=== PATIENT | female | born 1990 | race Caucasian/White ===

== ENCOUNTER 2022-07-09 18:37 | Inpatient (IN) | payer BC ==
[~2022-07-09] VITALS: Ht 149.9 cm; Wt 98.6 kg
--- OUTSIDE RECORDS SUMMARY | 2022-07-09 20:26 | XMS REPORT ---
Author [facility] Address Unknown Phone Unavailable Care Team Providers Care Hotel Clerk Name Role Phone KERRYKIRILL Landaverde Unavailable PROBLEMS Type Condition ICD9-CM Code [id number] Code Onset Dates Condition S tatus W/U Status Risk SNOMED Code Notes Problem Infertility, female N97.9 confirmed 1864517 Problem Other chronic pain G89.29 confirmed 8 2097607 Problem Moderate episode of recurrent major depressive disorder F33.1 confirmed 847044331 Problem PCO (polycystic ovaries) E28.2 confirmed [id number] ALLERGIES Allergen (clinical drug ingredient) Drug/Non Drug Allergy do cumented on EMR Reaction Allergy Type Onset Date Status diphenhydramine Benadryl anaphylaxis Drug Allergy Active ENCOUNTERS from 1989 to 2022-06-10 Encounter Location Date Provider [facility] [address] [id number] [place] [address] Jun, KIRILL PAYNE IMMUNIZATIONS Vaccine Route Administration Date Status PRIVATE TDAP (BOOSTRIX) IM Intramuscular Apr 30, 2022 Adminis tered dt (history) Unknown Dec 25, 2000 Administered engerix hepatitis b pediatric/adolescent (history) Unknown Dec 25, 2000 Administered 1st Dose PFIZER, COVID-19, 0.3mL Unknown Jul 09, 2020 Administered SOCIAL HISTORY Sex Assigned At : Social History Observation Description Sex Assigned At Unknown Alcohol Screen (Audit-C) Question Answer Notes Did you have a drink containing alcohol in the past year? No Points 0 Interpretation Negative DAST-10 (2020 Edition) Question Answer Notes 1. Have you used drugs other than those required for medical reasons? No 2. Do you abuse more than one drug at a time? No 3. Are you always able to stop using drugs when you want to? Yes 4. Have you had "blackouts" or "flashbacks" as a result of d rug use? No 5. Do you ever feel bad or guilty about your drug use? No 6. Does your spouse (or parents) ever co mplain about your involvement with drugs? No 7. Have you neglected your family because of your use of mary ann gs? No 8. Have you engaged in illegal activities in order to obtain drugs? No 9. Have you ever experienced withdrawal symptoms (felt sick) when you stopped taking drugs? No 10. Have you had medical problems as a r esult of your drug use (e.g., memory loss, hepatitis, convulsions, bleeding etc.)? No Results: 0 Interpretation of Score: No problems reported Sexual History Question Answer Notes Had sex in the past 12 months (vaginal, oral, or anal)? Yes Last menstrual period 09/14/2021 Have you ever had a Sexually transmitted disease? No with Men only Use protection? No PHQ2 Question Answer Notes In the last 2 weeks, how often have you had little interest or pleasure in doing things? Not at all In the last 2 weeks, how often have you been feeling down, depressed, or hopeless? Not at all Total PHQ2 Score 0 Tobacco use other than smoking: Question Answer Notes Are you an other tobacco user? No REASON FOR REFERRAL No Information VITAL SIGNS No information MEDICATIONS Medication SIG (Take, Route, Frequency, Duration) Notes Start Da te End Date Status Ondansetron 4 MG 1 tablet on the tongue and a llow to dissolve Orally every 8 hours for 30 day(s) Dec, Active Prometrium 200 MG 1 capsule Orally daily for 30 days 2021 Active Flintstones Multivitamin - 1 tablet Orally Once a day Active PROCEDURES No Information RESULTS No Results REASON FOR VISIT Requests return call MEDICAL (GENERAL) HISTORY Type Description Date Medical History slipped disk Surgical History leg surgery Goals Section No Information Health Concerns No Information MEDICAL EQUIPMENT No Information MENTAL STATUS No Information FUNCTIONAL STATUS No Information ASSESSMENTS No Information PLAN OF TREATMENT Next Appt Details Provider Name:TANA HINTON, 2022-06-12 09 :00:00 AM, [address] [place] [address], [id number], [place], [address], Provider Name:TANA HINTON, 2022-06-18 04 :20:00 PM, [address] [place] [address], [id number], [place], [address], Provider Name:TANA HINTON, 2022-06-25 04 :20:00 PM, [address] [place] [address], [id number], [place], [address], Provider Name:TANA HINTON, 2022-07-07 04 :20:00 PM, [address] [place] [address], [id number], [place], [address], Insurance Providers Payer Name Payer Address Payer Phone Insured Name Patient Relati onship to Insured Coverage Start Date Coverage End Date [facility] Number [facility] Missing insurance scan copy of card into pt doc Della Ponce Self - patient is the insured [id number] [facility] [address] [facility] [id number] Della Ponce Self - patient is the insured [id number] MEDICATIONS ADMINISTERED Medication Instructions Date of Administration Dosage DEPO MEDROL 80 MG/ML Jun, 1 mL DEXAMETHASONE 4MG/ML (PER 1 ML) Jun, 1 mL
--- OUTSIDE RECORDS SUMMARY | 2022-07-09 20:26 | XMS REPORT ---
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 confirmed 045190015045 Problem care in third trimester Z34.93 conf irmed 850928052 Problem Moderate episode of recurrent major depressive disorder F33.1 confirmed 790446473 Problem PCO (polycystic ovaries) E28.2 confirmed 287593842 Problem Infertility, female N97.9 confirmed 8541035 ALLERGIES Allergen (clinical drug ingredient) Drug/Non Drug Allergy do cumented on EMR Reaction Allergy Type Onset Date Status diphenhydramine Benadryl anaphylaxis Drug Allergy Active ENCOUNTERS from 1989 to 2022-06-29 Encounter Location Date Provider Diagnosis [address] [id number] [place] [address] Jul, TANA HINTON PCO (polycystic ovar ies) E28.2 IMMUNIZATIONS Vaccine Route Administration Date Status PRIVATE [...] Notes Start Da te End Date Status Famotidine 20 MG 1 tablet as needed Orally Twice a day for 30 da ys May, Active Flintstones Multivitamin - 1 tablet Orally Once a day Active Ondansetron 4 MG 1 tablet on the tongue and a llow to dissolve Orally every 8 hours for 30 day(s) Dec, Active PROCEDURES from 1989 to 2022-06-29 Procedure Date Ordered Date Performed Result Body Site ROUTINE VENIPUNCTURE 2020-07-27 N/A RESULTS No Results REASON FOR VISIT No Information MEDICAL (GENERAL) HISTORY Type Description Date Medical History slipped disk Surgical History leg surgery Goals Section No Information Health Concerns No Information MEDICAL EQUIPMENT No Information MENTAL STATUS No Information FUNCTIONAL STATUS No Information ASSESSMENTS Encounter Date Diagnosis Assessment Notes Treatment Notes Treatm ent Clinical Notes Jul, PCO (polycystic ovaries) (ICD-10 - E28.2 ) PLAN OF TREATMENT Next Appt Details Provider Name:TANA HINTON, 2022-07-07 04 :20:00 PM, [address] [place] [address], [id number], [place], [address], Insurance Providers Payer Name Payer Address Payer Phone Insured Name Patient Relati onship to Insured Coverage Start Date Coverage End Date Subscriber Number Group Nu mber [employer] [place] [address] [facility] [address] Della Ponce Self - patient is the insured [id number] [facility] Missing insurance scan copy of card into pt doc Della Ponce Self - patient is the insured [id number] MEDICATIONS ADMINISTERED Medication Instructions Date of Administration Dosage DEXAMETHASONE 4MG/ML (PER 1 ML) Jun, 1 mL DEPO MEDROL 80 MG/ML Jun, 1 mL
--- OUTSIDE RECORDS SUMMARY | 2022-07-09 20:26 | XMS REPORT ---
Author Author [facility] Address Unknown Phone Unavailable Care Team Providers Care Client Success Specialist Name Role Phone KIRILL PAYNE Unavailable PROBLEMS Type Condition ICD9-CM Code [id number] Code Onset Dates Condition S tatus W/U Status Risk SNOMED Code Notes Problem Infertility, female N97.9 confirmed 2945851 Problem Other chronic pain G89.29 confirmed 8 1353601 Problem Moderate episode of recurrent major depressive disorder F33.1 confirmed 473824074 Problem PCO (polycystic ovaries) E28.2 confirmed 424067527 ALLERGIES Allergen (clinical drug ingredient) Drug/Non Drug Allergy do cumented on EMR Reaction Allergy Type Onset Date Status diphenhydramine Benadryl anaphylaxis Drug Allergy Active ENCOUNTERS from 1989 to 2022-06-09 Encounter [facility] Date [facility] [address] [id number] [place] [address] Jun, 2020 KIRILL KERRY Sore throat J02.9 IMMUNIZATIONS Vaccine Route Administration Date Status 1st Dose PFIZER, COVID-19, 0.3mL Unknown Jul 09, 2020 Administered engerix hepatitis b pediatric/adolescent (history) Unknown Dec 25, 2000 Administered dt (history) Unknown Dec 25, 2000 Administered PRIVATE TDAP (BOOSTRIX) IM Intramuscular Apr 30, 2022 Adminis tered SOCIAL HISTORY Sex Assigned At : Social [...] 8 hours for 30 day(s) Dec, Active Flintstones Multivitamin - 1 tablet Orally Once a day Active Prometrium 200 MG 1 capsule Orally daily for 30 days 2021 Active PROCEDURES No Information RESULTS No Results REASON FOR VISIT strep swab Unruly Melara RN MEDICAL (GENERAL) HISTORY Type Description Date Medical History slipped disk Surgical History leg surgery Goals Section No Information Health Concerns No Information MEDICAL EQUIPMENT No Information MENTAL STATUS No Information FUNCTIONAL STATUS No Information ASSESSMENTS Encounter Date Diagnosis Assessment Notes Treatment Notes Treatm ent Clinical Notes Jun, Sore throat (ICD-10 - J02.9) PLAN OF TREATMENT Next Appt Details Provider Name:TANA HINTON, 2022-06-09 04 :20:00 PM, [address] [place] [address], [id number], [place], [address], Insurance Providers Payer Name Payer Address Payer Phone Insured Name Patient Relati onship to Insured Coverage Start Date Coverage End Date Subscriber Number Group [facility] Missing insurance scan copy of card into pt doc Della Ponce Self - patient is the insured [id number] [facility] [address] [facility] [address] Della Ponce Self - patient is the insured [id number] MEDICATIONS ADMINISTERED Medication Instructions Date of Administration Dosage DEXAMETHASONE 4MG/ML (PER 1 ML) Jun, 1 mL DEPO MEDROL 80 MG/ML Jun, 1 mL
--- OUTSIDE RECORDS SUMMARY | 2022-07-09 20:26 | XMS REPORT ---
Author Author [facility] Address Unknown Phone Unavailable Care Team Providers Care Cementer Machine Applicator Name Role Phone MARY JANE TANA Unavailable PROBLEMS Type Condition ICD9-CM Code [id number] Code Onset Dates Condition S tatus W/U Status Risk SNOMED Code Notes Problem Infertility, female N97.9 confirmed 0676007 Problem Other chronic pain G89.29 confirmed 8 4867302 Problem Moderate episode of recurrent major depressive disorder F33.1 confirmed 118929149 Problem PCO (polycystic ovaries) E28.2 confirmed 983584538 ALLERGIES Allergen (clinical drug ingredient) Drug/Non Drug Allergy do cumented on EMR Reaction Allergy Type Onset Date Status diphenhydramine Benadryl anaphylaxis Drug Allergy Active ENCOUNTERS from 1989 to 2022-07-09 Encounter Location Date Provider [facility] [address] [id number] [address] Jul, TANA HINTON IMMUNIZATIONS Vaccine Route Administration Date Status dt (history) Unknown Dec 25, 2000 Administered engerix hepatitis b pediatric/adolescent (history) Unknown Dec 25, 2000 Administered 1st Dose PFIZER, COVID-19, 0.3mL Unknown Jul 09, 2020 Administered PRIVATE TDAP (BOOSTRIX) IM Intramuscular Apr [...] Notes Start Da te End Date Status Flintstones Multivitamin - 1 tablet Orally Once a day Active Ondansetron 4 MG 1 tablet on the tongue and a llow to dissolve Orally every 8 hours for 30 day(s) Dec, Active PROCEDURES No Information RESULTS No Results REASON FOR VISIT No Information MEDICAL (GENERAL) HISTORY Type Description Date Medical History slipped disk Surgical History leg surgery Goals Section No Information Health Concerns No Information MEDICAL EQUIPMENT No Information MENTAL STATUS No Information FUNCTIONAL STATUS No Information ASSESSMENTS No Information PLAN OF TREATMENT No Information Insurance Providers Payer Name Payer Address Payer Phone Insured Name Patient Relati onship to Insured Coverage Start Date Coverage End Date Subscriber Number Group Nu mber [facility] Missing insurance scan copy of card into pt doc Della Ponce Self - patient is the insured [id number] [employer] [place] [address] [facility] [address] Della Ponce Self - patient is the insured [id number] MEDICATIONS ADMINISTERED Medication Instructions Date of Administration Dosage DEPO MEDROL 80 MG/ML Jun, 1 mL DEXAMETHASONE 4MG/ML (PER 1 ML) Jun, 1 mL
--- OUTSIDE RECORDS SUMMARY | 2022-07-09 20:26 | XMS REPORT ---
Author Author [facility] Address Unknown Phone Unavailable Care Team Providers Care Skiver Hand Name Role Phone MARY JANE TANA Unavailable PROBLEMS Type Condition ICD9-CM Code [id number] Code Onset Dates Condition S tatus W/U Status Risk SNOMED Code Notes Problem Infertility, female N97.9 confirmed 6991341 Problem Other chronic pain G89.29 confirmed 8 9371018 Problem Moderate episode of recurrent major depressive disorder F33.1 confirmed 370384429 Problem PCO (polycystic ovaries) E28.2 confirmed 124176685 ALLERGIES Allergen (clinical drug ingredient) Drug/Non Drug Allergy do cumented on EMR Reaction Allergy Type Onset Date Status diphenhydramine Benadryl anaphylaxis Drug Allergy Active ENCOUNTERS from 1989 to 2022-07-09 Encounter Location Date Provider [facility] [address] [id number] [address] Jul, TANA HINTON IMMUNIZATIONS Vaccine Route Administration Date Status 1st [...] Information RESULTS No Results REASON FOR VISIT Lab results MEDICAL (GENERAL) HISTORY Type Description Date Medical [...] End Date Subscriber Number Group Nu mber [facility] Missing insurance scan copy of card into pt doc Della Ponce Self - patient is the insured [id number] [facility] [address] [facility] [address] Della Ponce Self - patient is the insured [id number] MEDICATIONS ADMINISTERED Medication Instructions Date of Administration Dosage DEXAMETHASONE 4MG/ML (PER 1 ML) Jun, 1 mL DEPO MEDROL 80 MG/ML Jun, 1 mL
[2022-07-09] MEDS ORDERED: NS IV 1000 ML 1,000 ML IV ONE (20:30)
[2022-07-09] MEDS ORDERED: MINERAL OIL 30 ML UDC TOP PRN (20:30)
[2022-07-09] MEDS ORDERED: TERBUTALINE INJ 1 MG/ML (BRETHINE) AMP SC PRN (20:30)
[2022-07-09 20:47] LABS: BILIRUBIN,URINE NEGATIVE (NEGATIVE); CLARITY,URINE CLOUDY; COLOR,URINE ORANGE; GLUCOSE, URINE (UA) NEGATIVE (NEGATIVE); KETONES,URINE NEGATIVE (NEGATIVE); LEUKOCYTE ESTERASE ,URINE NEGATIVE (NEGATIVE); NITRITE,URINE NEGATIVE (NEGATIVE); PROTEIN,URINE 1+ (NEGATIVE)
[2022-07-09 20:47] LABS: BASOPHILS % (AUTO) 0 % (0-10); EOSINOPHILS # (AUTO) 0.1 10^3/uL (0.0-0.3); EOSINOPHILS % (AUTO) 1 % (0-10); HEMATOCRIT 33 % (35-52); HEMOGLOBIN 10.5 g/dL (11.5-16.0); LYMPHOCYTES # (AUTO) 2.2 10^3/uL (1.0-4.0); LYMPHOCYTES % (AUTO) 23 % (12-44); MEAN CORPUSCULAR HEMOGLOBIN 27 pg (25-34); MEAN CORPUSCULAR HGB CONC 32 g/dL (32-36); MEAN CORPUSCULAR VOLUME 86 fL (80-99); MEAN PLATELET VOLUME 11.5 fL (9.0-12.2); MONOCYTES # (AUTO) 0.6 10^3/uL (0.0-1.0); MONOCYTES % (AUTO) 7 % (0-12); NEUTROPHILS # (AUTO) 6.6 10^3/uL (1.8-7.8); NEUTROPHILS % (AUTO) 69 % (42-75); PLATELET COUNT 310 10^3/uL (130-400); WHITE BLOOD COUNT 9.6 10^3/uL (4.3-11.0)
[2022-07-09] MEDS ORDERED: D5 LR IV SOLUTION 1,000 ML IV ONE (20:51)
[2022-07-09] MEDS: D5 LR IV SOLUTION 1,000 ML IV SCH (20:54)
[2022-07-09 21:10] VITALS: BP 114/69
[2022-07-09 21:14] LABS: BACTERIA,URINE FEW /HPF; CALCIUM OXALATE CRYSTALS,UR LARGE /LPF; HYALINE CASTS, URINE RARE /LPF; WBC,URINE 0-2 /HPF
[2022-07-09] MEDS: CATHETER FLUSH 10 ML SYR IV SCH (21:48)
[2022-07-10] VITALS (76 sets, daily range): BP systolic 93–135; BP diastolic 52–87
[2022-07-10] MEDS: D5 LR IV SOLUTION 1,000 ML IV SCH ×3 (05:07→19:59)
[2022-07-10] MEDS: CATHETER FLUSH 10 ML SYR IV SCH ×2 (05:21→22:00)
--- NOTE | 2022-07-10 08:02 | History & Physical-OB ---
OB - Chief Complaint & HPI Date/Time Date of Admission: Date of Admission: Jul 09, 2022 at 18:37 Date seen by a Provider: Jul 10, 2022 Time Seen by a Provider: 08:10 Chief Complaint/History OB-Reason for Admission/Chief: Induction of Labor Hx : 1 Hx Para: 0 Expected Date of Delivery: Jul 08, 2022 Gestational Age in Weeks: 40 Gestational Age in Days: 2 Indication for induction: post dates Admission Nurse Assessment Rev: Yes Allergies and Home Medications Allergies Coded Allergies: diphenhydramine (Verified Allergy, Severe, Anaphylaxis, 07/09/22) Patient Home Medication List Home Medication List Reviewed: Yes OB - History Hx of Present Care: Yes Ultrasounds: Normal mid trimester US Obstetrical Complications: None Medical Complications: None Information Induced Hypertension: No Maternal Gestational Diabetes: No Patient Past Medical History PMH includes anxiety and depression Immunizations Influenza Vaccine Up-to-Date: No; Not Current COVID19 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: [employer] Hepatitis A: Yes Hepatitis B: Yes Tetanus Booster (TDap): Less than 5yrs Rubella: immune RPR/VDRL: Negative GBS Status: Negative HBsAG: Negative OB - Admission Exam Physical Exam Vitals: Vital Signs 07/10/22 03:26 Temp 36.8 Pulse 82 Resp 18 B/P (MAP) 130/76 (94) Pulse Ox 100 O2 Delivery Room Air HEENT: Moist Membranes Heart: Rhythm Normal Lungs: Clear Abdomen: Non tender Extremities: Edema (1+ pitting edema) Cervical Dilatation: 1cm Effacement: 50% Station: -1 Membranes: Intact Heart Rate: 130's Accelerations: Accelerations Present Decelerations: No Decelerations Short Term Variability: Present Trash Hauler Variability: Average (6-25) Contractions on Admission: None Olivas Scoring Tool (Modified) Dilation (cm): 1-2cm (1) Effacement (%): 31-51% (1) Descent/Station: -1,0 (2) Cervix Consistency: Soft (2) Cervix Position: Anterior (2) Subtract 1 point for: Postdate (-1) Olivas Score: 8 Labs Laboratory Tests Test 07/09/22 19:00 07/09/22 19:45 Range/Units Urine Color ORANGE Urine Clarity CLOUDY Urine pH 6.0 5-9 Urine Specific [place] >=1.030 1.016-1.022 Urine Protein 1+ H NEGATIVE Urine Glucose (UA) NEGATIVE NEGATIVE Urine Ketones NEGATIVE NEGATIVE Urine Nitrite NEGATIVE NEGATIVE Urine Bilirubin NEGATIVE NEGATIVE Urine Urobilinogen 1.0 < = 1.0 MG/DL Urine Leukocyte Esterase NEGATIVE NEGATIVE Urine RBC (Auto) NEGATIVE NEGATIVE Urine RBC NONE /HPF Urine WBC 0-2 /HPF Urine Squamous Epithelial Cells 2-5 /HPF Urine Crystals PRESENT H /LPF Urine Calcium Oxalate Crystals LARGE H /LPF Urine Bacteria FEW H /HPF Urine Casts PRESENT /LPF Urine Hyaline Casts RARE /LPF Urine Mucus LARGE H /LPF Urine Culture Indicated YES White Blood Count 9.6 4.3-11.0 10^3/uL Red Blood Count 3.86 3.80-5.11 10^6/uL Hemoglobin 10.5 L 11.5-16.0 g/dL Hematocrit 33 L 35-52 % Mean Corpuscular Volume 86 80-99 fL Mean Corpuscular Hemoglobin 27 25-34 pg Mean Corpuscular Hemoglobin Concent 32 32-36 g/dL Red Cell Distribution Width 14.3 10.0-14.5 % Platelet Count 310 130-400 10^3/uL Mean Platelet Volume 11.5 9.0-12.2 fL Immature Granulocyte % (Auto) 1 % Neutrophils (%) (Auto) 69 42-75 % Lymphocytes (%) (Auto) 23 12-44 % Monocytes (%) (Auto) 7 0-12 % Eosinophils (%) (Auto) 1 0-10 % Basophils (%) (Auto) 0 0-10 % Neutrophils # (Auto) 6.6 1.8-7.8 10^3/uL Lymphocytes # (Auto) 2.2 1.0-4.0 10^3/uL Monocytes # (Auto) 0.6 0.0-1.0 10^3/uL Eosinophils # (Auto) 0.1 0.0-0.3 10^3/uL Basophils # (Auto) 0.0 0.0-0.1 10^3/uL Immature Granulocyte # (Auto) 0.1 0.0-0.1 10^3/uL OB - Assessment/Plan/Diagnosis Assessment Assessment: induction of labor Admission Dx 32yo F @ 41w2d here for induction of labor due to being post dates. Patient has not had any complications throughout her . PMH includes depression and anxiety. Patient reports she is not feeling any contractions at this time. She has felt more pressure in her lower stomach over the past week but denies any contractions, vaginal bleeding, and LOF. At her previous office visit last week she was dilated to 1cm with 50% effacement and -1 station. She has been feeling well otherwise and denies fevers, chills, chest pain, shortness of breath, nausea, vomiting, and diarrhea. Admission Status: Observation Plan Plan: Induction Induction Method: per Misoprostol Protocol Other Plan Patient has received 150mcg of misoprostol for cervical ripening. Will start IV pitocin to help with contractions. Once patient is experiencing more regular contractions then an amniotomy will be performed. Expectant management will be done after that. Cervical checks will be performed to monitor labor course. heart monitoring is being done as well. EUGENE GUTIERREZ Jul 10, 2022 08:02
[2022-07-10] MEDS ORDERED: OXYTOCIN PRE-MIX DRIP 500 ML IV SCH (08:30)
[2022-07-10] MEDS ORDERED: LIDOCAINE 1% INJ 20 ML VIAL IJ PRN (14:00)
[2022-07-10] MEDS ORDERED: ONDANSETRON 4 MG/2 ML (SDV) Z0FRAN IVP PRN ×3 (14:45→22:45)
[2022-07-10] MEDS ORDERED: ONDANSETRON 4 MG/2 ML (SDV) Z0FRAN ONE ×2 (14:49→21:18)
[2022-07-10] MEDS ORDERED: BUTORPHANOL INJ 2 MG/ML (STADOL) VIAL IV ONE (16:00)
[2022-07-10] MEDS: LACTATED RINGERS 1,000 ML IV SCH ×2 (16:28→21:14)
[2022-07-10] MEDS ORDERED: fentaNYL 2 mcg/ml BUPIVA 0.125 100 ML ONE (16:36)
[2022-07-10] MEDS ORDERED: fentaNYL INJ 100 MCG/2 ML AMP ONE (16:42)
[2022-07-10] MEDS ORDERED: BUPIVACAINE 0.25% 10 ML (SENSORCAINE) VIAL ONE ×2 (16:42→21:18)
[2022-07-10] MEDS ORDERED: ONDANSETRON 4 MG/2 ML (SDV) Z0FRAN IV PRN (17:15)
[2022-07-10] MEDS ORDERED: diphenhydrAMINE 50 MG/ML INJ (BENADRYL) IV PRN (17:15)
[2022-07-10] MEDS ORDERED: NALOXONE 0.4 MG/ML 1 ML (NARCAN) VIAL IV PRN ×2 (17:15→21:45)
[2022-07-10] MEDS ORDERED: LACTATED RINGERS 1,000 ML IV ONE (17:15)
[2022-07-10] MEDS ORDERED: fentaNYL 2 mcg/ml BUPIVA 0.125 100 ML IV SCH (17:15)
[2022-07-10] MEDS ORDERED: CATHETER FLUSH 10 ML SYR IV PRN ×2 (17:15→21:00)
--- NOTE | 2022-07-10 18:21 | Labor Progress Note ---
Labor Progress Note Labor Progress Note Date Seen by Provider: Jul 10, 2022 Time Seen by Provider: 18:20 Subjective: Pt denies complaints. Feeling much better since getting epidural Objective: 2.5/60/-1 Assessment/Plan: Della Ponce is a (32 /Para 1 / 0,Gestational Age (wks)40 here for IOL CEFM/TOCO Continue pitocin protocol Anesthesia: Epidural AROM clear 0615 Anticipate vaginal delivery. Vitals - Labs Vital Signs - I&O Vital Signs Date Time Temp Pulse Resp B/P (MAP) Pulse Ox O2 Delivery O2 Flow Rate FiO2 07/10/22 12:30 73 18 124/69 (87) Room Air 07/10/22 12:15 81 18 120/81 (94) Room Air 07/10/22 12:00 37.0 69 18 112/76 (88) Room Air 07/10/22 11:45 75 18 118/74 (89) Room Air 07/10/22 11:30 75 18 103/59 (74) Room Air 07/10/22 11:15 75 18 115/67 (83) Room Air 07/10/22 11:00 82 18 120/74 (89) Room Air 07/10/22 10:45 36.6 75 18 107/59 (75) Room Air 07/10/22 10:30 75 18 129/79 (96) Room Air 07/10/22 10:15 80 18 127/76 (93) Room Air 07/10/22 10:00 36.5 79 18 123/72 (89) Room Air 07/10/22 09:45 74 18 102/77 (85) Room Air 07/10/22 09:30 74 18 113/78 (90) Room Air 07/10/22 09:15 75 18 117/73 (88) Room Air 07/10/22 09:00 36.3 70 18 116/59 (78) Room Air 07/10/22 08:45 78 18 108/60 (76) Room Air 07/10/22 08:30 74 18 123/75 (91) Room Air 07/10/22 07:30 36.4 75 18 111/69 (83) 98 Room Air 07/10/22 03:26 36.8 82 18 130/76 (94) 100 Room Air 07/10/22 00:23 73 109/66 (80) 2/23/23 00:13 36.9 77 20 103/61 (75) 97 Room Air 07/09/22 21:10 36.5 91 20 97 Room Air I & O 07/10/22 07:00 Intake Total 2000 ml Balance 2000 ml Labs Laboratory Tests 07/09/22 19:00: Urine Color ORANGE, Urine Clarity CLOUDY, Urine pH 6.0, Urine Specific [place] >=1.030, Urine Protein 1+H, Urine Glucose (UA) NEGATIVE, Urine Ketones NEGATIVE, Urine Nitrite NEGATIVE, Urine Bilirubin NEGATIVE, Urine Urobilinogen 1.0, Urine Leukocyte Esterase NEGATIVE, Urine RBC (Auto) NEGATIVE, Urine RBC NONE, Urine WBC 0-2, Urine Squamous Epithelial Cells 2-5, Urine Crystals PRESENTH, Urine Calcium Oxalate Crystals LARGEH, Urine Bacteria FEWH, Urine Casts PRESENT, Urine Hyaline Casts RARE, Urine Mucus LARGEH, Urine Culture Indicated YES 07/09/22 19:45: White Blood Count 9.6, Red Blood Count 3.86, Hemoglobin 10.5L, Hematocrit 33L, Mean Corpuscular Volume 86, Mean Corpuscular Hemoglobin 27, Mean Corpuscular Hemoglobin Concent 32, Red Cell Distribution Width 14.3, Platelet Count 310, Mean Platelet Volume 11.5, Immature Granulocyte % (Auto) 1, Neutrophils (%) (Auto) 69, Lymphocytes (%) (Auto) 23, Monocytes (%) (Auto) 7, Eosinophils (%) (Auto) 1, Basophils (%) (Auto) 0, Neutrophils # (Auto) 6.6, Lymphocytes # (Auto) 2.2, Monocytes # (Auto) 0.6, Eosinophils # (Auto) 0.1, Basophils # (Auto) 0.0, Immature Granulocyte # (Auto) 0.1 Microbiology 07/09/22 Urine Culture - Preliminary, Resulted Culture In Progress TANA HINTON MD Jul 10, 2022 18:21
[2022-07-10] MEDS ORDERED: CITRIC ACID/SOB CIT (BICITRA) 30 ML UDC PO ONE (21:00)
[2022-07-10] MEDS ORDERED: METOCLOPRAMIDE INJ 10 MG/2 ML (REGLAN) ONE (21:00)
[2022-07-10] MEDS ORDERED: METOCLOPRAMIDE INJ 10 MG/2 ML (REGLAN) IV ONE (21:00)
[2022-07-10] MEDS ORDERED: CITRIC ACID/SOB CIT (BICITRA) 30 ML UDC ONE (21:00)
[2022-07-10] MEDS ORDERED: LACTATED RINGERS 1,000 ML IV PRN ×2 (21:00)
[2022-07-10] MEDS ORDERED: FAMOTIDINE 20MG/2ML IV (PEPCID) IV ONE (21:00)
[2022-07-10] MEDS ORDERED: FAMOTIDINE 20MG/2ML IV (PEPCID) ONE (21:01)
[2022-07-10] MEDS ORDERED: LIDOCAINE PF 2% 5 ML (XYLOCAINE) VIAL ONE (21:17)
[2022-07-10] MEDS ORDERED: BUPIVACAINE 0.5% 30 ML (SENSORCAINE) VIAL ONE (21:18)
[2022-07-10] MEDS ORDERED: KETOROLAC 30 MG/ML VIAL ONE (21:18)
[2022-07-10] MEDS ORDERED: ceFAZolin INJECTION 3,000 MG in NS (IVPB) 100 ML IV ONE (21:30)
[2022-07-10] MEDS ORDERED: ceFAZolin INJECTION 2,000 MG ONE (21:37)
[2022-07-10] MEDS ORDERED: NS (IVPB) 50 ML ONE (21:38)
[2022-07-10] MEDS ORDERED: BISACODYL 10 MG SUPP (DULCOLAX) PR PRN (21:45)
[2022-07-10] MEDS ORDERED: MEASLES,MUMPS,RUBELLA 1 EA INJ SC SCH (21:45)
[2022-07-10] MEDS ORDERED: ceFAZolin INJECTION 2,000 MG in NS (IVPB) 50 ML IV ONE (21:45)
[2022-07-10] MEDS ORDERED: TETANUS,DIPTH,PERTUSS P/F (BOOSTRIX) 0.5 ML VIAL IM SCH (21:45)
--- NOTE | 2022-07-10 21:48 | Progress Note ---
Standard Progress Note Progress Notes/Assess & Plan Date Seen by a Provider: Jul 10, 2022 Time Seen by a Provider: 21:47 Progress/Assessment & Plan Please see Dr. Burleson labor summary. I was consulted to proceed with PLTCS due to arrest of dilatation and heart rate deceleration with intolerance of labor. Patient max dilatation was 2 cm. Discussed with patient and family procedure in detail, all questions answered and patient taken to OR. MYRON OTOOLE DO Jul 10, 2022 21:48
[2022-07-10] MEDS ORDERED: OXYTOCIN PRE-MIX DRIP 1,000 ML IV ONE (21:53)
[2022-07-10] MEDS ORDERED: CATHETER FLUSH 10 ML SYR IV SCH (22:00)
[2022-07-10] MEDS ORDERED: METHYLERGONOVINE 0.2 MG/ML (METHERGINE) AMP ONE (22:04)
--- NOTE | 2022-07-10 22:04 | Labor Progress Note ---
Labor Progress Note Labor Progress Note Date Seen by Provider: Jul 10, 2022 Time Seen by Provider: 09:05 Subjective: Pt denies complaints. Comfortable with epidural Called by Nursing staff regarding decelerations that are concerning with lates. Reviewed strip remotely. Objective: 2-/-1 Assessment/Plan: Della Ponce is a (32 /Para 1 / 0,Gestational Age (wks)40.2 here for IOL. CEFM/TOCO Pitocin protocol stopped due to decelerations Called Dr Avendano for need for C/section Vitals - Labs Vital Signs - I&O Vital Signs Date Time Temp Pulse Resp B/P (MAP) Pulse Ox O2 Delivery O2 Flow Rate FiO2 07/10/22 20:15 36.4 07/10/22 16:00 36.9 75 18 126/71 (89) 99 Room Air 07/10/22 15:45 75 18 122/77 (92) 99 Room Air 07/10/22 15:38 92 18 114/73 (87) Room Air 07/10/22 15:30 81 18 99 Room Air 07/10/22 15:15 71 18 134/75 (94) 98 Room Air 07/10/22 15:00 86 18 116/73 (87) 100 Room Air 07/10/22 14:45 115 18 131/75 (93) Room Air 07/10/22 14:30 85 18 112/75 (87) Room Air 07/10/22 14:15 65 18 129/69 (89) Room Air 07/10/22 14:00 37.0 62 18 130/72 (91) Room Air 07/10/22 13:45 71 18 103/59 (74) 100 Room Air 07/10/22 13:30 65 18 103/59 (74) 100 Room Air 07/10/22 13:15 68 18 110/59 (76) 100 Room Air 07/10/22 13:00 37.2 77 18 109/55 (73) 100 Room Air 07/10/22 12:45 80 18 114/60 (78) Room Air 07/10/22 12:30 73 18 124/69 (87) Room Air 07/10/22 12:15 81 18 120/81 (94) Room Air 07/10/22 12:00 37.0 69 18 112/76 (88) Room Air 07/10/22 11:45 75 18 118/74 (89) Room Air 07/10/22 11:30 75 18 103/59 (74) Room Air 07/10/22 11:15 75 18 115/67 (83) Room Air 07/10/22 11:00 82 18 120/74 (89) Room Air 07/10/22 10:45 36.6 75 18 107/59 (75) Room Air 07/10/22 10:30 75 18 129/79 (96) Room Air 07/10/22 10:15 80 18 127/76 (93) Room Air 07/10/22 10:00 36.5 79 18 123/72 (89) Room Air 07/10/22 09:45 74 18 102/77 (85) Room Air 07/10/22 09:30 74 18 113/78 (90) Room Air 07/10/22 09:15 75 18 117/73 (88) Room Air 07/10/22 09:00 36.3 70 18 116/59 (78) Room Air 07/10/22 08:45 78 18 108/60 (76) Room Air 07/10/22 08:30 74 18 123/75 (91) Room Air 07/10/22 07:30 36.4 75 18 111/69 (83) 98 Room Air 07/10/22 03:26 36.8 82 18 130/76 (94) 100 Room Air 07/10/22 00:23 73 109/66 (80) 07/10/22 00:13 36.9 77 20 103/61 (75) 97 Room Air I & O 07/10/22 07:00 Intake Total 2000 ml Balance 2000 ml Labs Microbiology 07/09/22 Urine Culture - Preliminary, Resulted Culture In Progress TANA HINTON MD Jul 10, 2022 22:04
[2022-07-10] MEDS: KETOROLAC 30 MG/ML VIAL IV SCH (22:20)
[2022-07-10] MEDS ORDERED: morphine INJ 10 MG/ML 1ML (SYR OR VIAL) IVP ONE (22:45)
--- NOTE | 2022-07-10 23:22 | OPERATIVE REPORT ---
PREOPERATIVE DIAGNOSES: 1. A 32-year-old female with intolerance of labor at 40 weeks and 2 days gestation. 2. Arrest of cervical dilatation. POSTOPERATIVE DIAGNOSES: 1. A 32-year-old female with intolerance of labor at 40 weeks and 2 days gestation. 2. Arrest of cervical dilatation. PROCEDURE: Primary low transverse section. SURGEON: Jose Ramon Otoole DO ANESTHESIA: Epidural, which was bolused. EBL: 400 mL. URINE OUTPUT: 200 mL clear at the end of the procedure. FLUIDS: 1700 mL lactated Ringer's solution. FINDINGS: Live male infant, weight 7 pounds 7 ounces, Apgars of 8 and 9. Grossly normal appearing uterus, bilateral fallopian tubes and ovaries. SPECIMEN SENT: None. INDICATIONS FOR PROCEDURE: This 32-year-old female. The patient was brought in for induction of labor by Dr. Anna Lynn at the [facility]. Her labor course is documented as such from Dr. Lynn. I was consulted this evening due to intolerance of Pitocin augmentation of labor. The patient had been at 2 cm for most of the day today without any further dilatation. Due to this and due to failure of her cervix to progress. I discussed with the patient proceeding with primary . Risks of the procedure were discussed with the patient at bedside in detail with the family present including risk of bleeding, infection, damage to surrounding structures including but not limited to bowel, bladder, ureter, kidneys, possible need for reoperation, postoperative complications that may occur recovery timeframe risk from anesthesia and even . After everything was discussed with the patient in detail, consent was obtained, the patient was taken to the operating room. OPERATIVE REPORT IN DETAIL: Once in the operating room, epidural analgesia was bolused and found to be adequate, was placed in supine position with leftward tilt, prepped and draped in normal sterile fashion. A timeout was performed. Anesthesia was tested. I then make a Pfannenstiel skin incision with a knife and carried down to the fascia using Bovie cautery, the fascial incision extended laterally using Bovie cautery. Superior aspect of the fascial incision was then grasped with Tammy clamps, tented up and dissected off the rectus muscles. The inferior aspect of the fascial incision was then grasped with Tammy clamps, tented up and dissected off the rectus muscles. The rectus muscles were dissected down the midline using sharp dissection, we exposed the peritoneum, which entered bluntly using blunt traction. Gerry ring retractor was placed in the peritoneal incision, which offers excellent lateral sidewall retraction. I identified lower uterine segment was found to be thinned out. I make a low transverse incision to the vesicouterine peritoneum and bluntly dissected this off the lower uterine segment, creating a bladder flap. I then proceeded my myotomy until membranes were visualized, at which point I extended the uterine incision laterally and superiorly using bandage scissors. Amniotomy was performed in the process of doing this, clear fluid was noted. The was found in vertex presentation with gentle fundal pressure, the 's head was elevated up to the incision where was delivered through the incision. The nares and oropharynx bulb suctioned. Anterior and posterior shoulders were delivered after nuchal cord was reduced x1 and the was then brought to the operative field where cord was doubly clamped and cut and infant was handed off to waiting nurses in attendance. Cord blood was collected. Three-vessel cord with intact placenta was delivered spontaneously thereafter. IV Pitocin was initiated to facilitate uterine contraction. The uterus remained boggy despite bimanual manipulation and compression; therefore, I have anesthesia administer 0.2 mg of Methergine IM. I then cleared the uterus of all endometrial clots and debris. I closed the uterine incision using 0 Vicryl suture in a running locked fashion. Second layer of imbricating 0 Monocryl was placed. Excellent hemostasis was noted after doing this. I then placed the uterus back in the pelvis and copiously irrigated the pelvis using normal saline. Once again, there was no active bleeding noted from any of my dissection planes. I placed Interceed antiadhesive over my low transverse incision, I removed the Gerry retractor and then proceeded with closing the peritoneum using 3-0 Vicryl suture in a running fashion. The rectus muscles were reapproximated using 3-0 Vicryl suture in interrupted fashion. The fascia was reapproximated using 0 Vicryl suture in a running fashion. The subcutaneous tissue was reapproximated using 3-0 plain interrupted subcutaneous stitch and skin reapproximated using 4-0 Monocryl running subcuticular. Dermabond was applied to incision, sterile dressing with adhesive white tape. The patient tolerated the procedure well and sent to recovery area in stable condition. Lap and sponge counts were correct at the end of the procedure. Instrument counts correct as well. Two grams of Ancef were given preoperatively for infection prophylaxis. Job ID: [id number] DocumentID: [id number] Dictated Date: 07/10/2022 22:31:50 Portable Machine Sander Date: 07/10/2022 23:19:00 Dictated By: JOSE RAMON OTOOLE DO
[2022-07-10] MEDS: OXYTOCIN PRE-MIX DRIP 500 ML IV SCH (23:48)
[2022-07-11 00:38] VITALS: BP 113/69
[2022-07-11] MEDS: HYDROCORTISONE 1% CREAM 30 GM TUBE TOP SCH ×4 (02:25→21:29)
[2022-07-11] MEDS: OXYTOCIN PRE-MIX DRIP 500 ML IV SCH (02:31)
[2022-07-11] MEDS: METOCLOPRAMIDE 10 MG (REGLAN) TAB PO SCH ×4 (02:32→21:29)
[2022-07-11 03:55] VITALS: BP 112/67
[2022-07-11] MEDS: KETOROLAC 30 MG/ML VIAL IV SCH ×3 (03:55→15:50)
[2022-07-11] MEDS: HYDROcodone/APAP 5 MG/325 MG (LORTAB) TAB PO PRN (03:55)
[2022-07-11] MEDS: CATHETER FLUSH 10 ML SYR IV SCH ×3 (03:56→23:28)
[2022-07-11 05:51] LABS: BASOPHILS % (AUTO) 0 % (0-10); EOSINOPHILS % (AUTO) 0 % (0-10); HEMATOCRIT 29 % (35-52); HEMOGLOBIN 9.2 g/dL (11.5-16.0); LYMPHOCYTES # (AUTO) 1.7 10^3/uL (1.0-4.0); LYMPHOCYTES % (AUTO) 13 % (12-44); MEAN CORPUSCULAR HEMOGLOBIN 28 pg (25-34); MEAN CORPUSCULAR HGB CONC 32 g/dL (32-36); MEAN CORPUSCULAR VOLUME 88 fL (80-99); MEAN PLATELET VOLUME 11.6 fL (9.0-12.2); MONOCYTES % (AUTO) 7 % (0-12); NEUTROPHILS # (AUTO) 10.3 10^3/uL (1.8-7.8); NEUTROPHILS % (AUTO) 79 % (42-75); PLATELET COUNT 249 10^3/uL (130-400); WHITE BLOOD COUNT 13.1 10^3/uL (4.3-11.0)
[2022-07-11 08:30] VITALS: BP 109/57
[2022-07-11] MEDS: DOCUSATE SODIUM 100 MG (COLACE) CAP PO SCH ×2 (08:39→21:29)
--- NOTE | 2022-07-11 09:21 | Postpartum Progress Note ---
Note Note Day # 1 Subjective: Patient is without complaints. Ambulating, voiding. Tolerating a regular diet without nausea or vomiting. Normal lochia. Pain is well controlled with oral pain medications. Physical Exam: General - Alert and oriented, no apparent distress Abdomen - Soft, appropriately tender to palpation, non-distended, fundus firm at umbilicus; incision c/d/i Extremities - no edema, negative Lalitha's bilaterally Assessment: Post- day # 1, status post PLTCS Recovering well, hemodynamically stable Acute blood loss anemia Plan: Routine care. Encourage breast feeding. Encourage ambulation. Ferrous sulfate supplementation. Plan for discharge tomorrow Vitals - Labs Vital Signs - I&O Vital Signs Date Time Temp Pulse Resp B/P (MAP) Pulse Ox O2 Delivery O2 Flow Rate FiO2 07/11/22 08:30 36.3 82 18 109/57 (74) 96 Room Air 07/11/22 03:55 36.7 85 18 112/67 (82) 97 Room Air 07/11/22 02:48 Room Air 07/11/22 00:38 36.8 89 18 113/69 (84) 96 Room Air 07/10/22 23:20 37.1 20 115/66 (82) 98 Room Air 07/10/22 23:10 20 116/63 (80) 97 07/10/22 23:00 16 112/82 (92) 98 Room Air 07/10/22 22:50 16 112/84 (93) 98 Room Air 07/10/22 22:40 18 108/60 (76) 98 Room Air 07/10/22 22:29 36.3 20 122/87 (99) 98 Room Air 07/10/22 21:04 100 124/56 (78) 07/10/22 20:50 78 113/56 (75) 07/10/22 20:34 73 113/76 (88) 07/10/22 20:19 68 113/75 (88) 07/10/22 20:15 36.4 07/10/22 20:05 83 109/70 (83) 07/10/22 19:50 65 96/63 (74) 07/10/22 17:15 83 18 106/70 (82) 99 Room Air 07/10/22 17:13 83 18 112/68 (83) Room Air 07/10/22 17:10 37.2 89 18 113/69 (84) 98 Room Air 07/10/22 17:06 91 18 118/72 (87) 97 Room Air 07/10/22 17:03 85 18 117/73 (88) 100 Room Air 07/10/22 17:00 81 18 135/76 (95) 99 Room Air 07/10/22 16:45 86 20 135/66 (89) 100 Room Air 07/10/22 16:30 Room Air 07/10/22 16:15 68 18 125/73 (90) Room Air 07/10/22 16:00 36.9 75 18 126/71 (89) 99 Room Air 07/10/22 15:45 75 18 122/77 (92) 99 Room Air 07/10/22 15:38 92 18 114/73 (87) Room Air 07/10/22 15:30 81 18 99 Room Air 07/10/22 15:15 71 18 134/75 (94) 98 Room Air 07/10/22 15:00 86 18 116/73 (87) 100 Room Air 07/10/22 14:45 115 18 131/75 (93) Room Air 07/10/22 14:30 85 18 112/75 (87) Room Air 07/10/22 14:15 65 18 129/69 (89) Room Air 07/10/22 14:00 37.0 62 18 130/72 (91) Room Air 07/10/22 13:45 71 18 103/59 (74) 100 Room Air 07/10/22 13:30 65 18 103/59 (74) 100 Room Air 07/10/22 13:15 68 18 110/59 (76) 100 Room Air 07/10/22 13:00 37.2 77 18 109/55 (73) 100 Room Air 07/10/22 12:45 80 18 114/60 (78) Room Air 07/10/22 12:30 73 18 124/69 (87) Room Air 07/10/22 12:15 81 18 120/81 (94) Room Air 07/10/22 12:00 37.0 69 18 112/76 (88) Room Air 07/10/22 11:45 75 18 118/74 (89) Room Air 07/10/22 11:30 75 18 103/59 (74) Room Air 07/10/22 11:15 75 18 115/67 (83) Room Air 07/10/22 11:00 82 18 120/74 (89) Room Air 07/10/22 10:45 36.6 75 18 107/59 (75) Room Air 07/10/22 10:30 75 18 129/79 (96) Room Air 07/10/22 10:15 80 18 127/76 (93) Room Air 07/10/22 10:00 36.5 79 18 123/72 (89) Room Air 07/10/22 09:45 74 18 102/77 (85) Room Air 07/10/22 09:30 74 18 113/78 (90) Room Air I & O 07/11/22 07:00 Intake Total 4355 ml Output Total 700 ml Balance 3655 ml Labs Laboratory Tests 07/11/22 05:29: White Blood Count 13.1H, Red Blood Count 3.30L, Hemoglobin 9.2L, Hematocrit 29L, Mean Corpuscular Volume 88, Mean Corpuscular Hemoglobin 28, Mean Corpuscular Hemoglobin Concent 32, Red Cell Distribution Width 14.3, Platelet Count 249, Mean Platelet Volume 11.6, Immature Granulocyte % (Auto) 0, Neutrophils (%) (Auto) 79H, Lymphocytes (%) (Auto) 13, Monocytes (%) (Auto) 7, Eosinophils (%) (Auto) 0, Basophils (%) (Auto) 0, Neutrophils # (Auto) 10.3H, Lymphocytes # (Auto) 1.7, Monocytes # (Auto) 1.0, Eosinophils # (Auto) 0.0, Basophils # (Auto) 0.0, Immature Granulocyte # (Auto) 0.1 Microbiology 07/09/22 Urine Culture - Preliminary, Resulted Gram Pos Mixed Bacterial Evonne ELVIA HE APRN Jul 11, 2022 09:21
[2022-07-11 13:30] VITALS: BP 101/55
--- NOTE | 2022-07-11 14:24 | Anesthesia-Regional Post-Op ---
Regional Patient Condition Mental Status: Alert, Oriented x3 Circulation: Same as Pre-Op Headache: Absent Sensation: Full Recovery Motor Block: Absent Post Op Complications Complications None Follow Up Care/Instructions Patient Instructions None needed. Anesthesia/Patient Condition Patient is doing well, no complaints, stable vital signs, no apparent adverse anesthesia problems. No complications reported per nursing. RICARDO SANTOS DO Jul 11, 2022 14:24
[2022-07-11 17:30] VITALS: BP 108/57
[2022-07-11] MEDS: IBUPROFEN 600 MG (MOTRIN) TAB PO SCH (21:29)
[2022-07-11 21:30] VITALS: BP 114/58
[2022-07-12 03:45] VITALS: BP 100/56
[2022-07-12] MEDS: METOCLOPRAMIDE 10 MG (REGLAN) TAB PO SCH ×3 (03:48→12:37)
[2022-07-12] MEDS: IBUPROFEN 600 MG (MOTRIN) TAB PO SCH ×2 (03:48→09:10)
[2022-07-12] MEDS: CATHETER FLUSH 10 ML SYR IV SCH (05:41)
[2022-07-12 09:03] VITALS: BP 117/75
[2022-07-12] MEDS: DOCUSATE SODIUM 100 MG (COLACE) CAP PO SCH (09:10)
[2022-07-12] MEDS: HYDROCORTISONE 1% CREAM 30 GM TUBE TOP SCH (09:10)
[2022-07-12] MEDS: HYDROcodone/APAP 5 MG/325 MG (LORTAB) TAB PO PRN (12:38)
[2022-07-12] MEDS ORDERED: ACHD5005 PO ×4 (14:11→15:37)
--- NOTE | 2022-07-12 14:17 | Short Stay Summary ---
Discharge Summary Hospital Course Was the Problem List Reviewed?: Yes Problems/Dx: (1) 40 weeks gestation of Status: Resolved (2) Acute blood loss anemia Status: Acute Assessment & Plan: ASSESSMENT: POD#2 Acute blood loss anemia PLAN: DC home Fe/Vit C daily f/u at office 1 week for incision check Final Diagnosis: Anemia Hospital Course Date of Admission: Jul 09, 2022 at 18:37 Admission Diagnosis : Family Physician/Provider: Date of Discharge: 07/12/22 Discharge Diagnosis: Acute blood loss anemia Hospital Course: The patient did well . She reported light to moderate lochia, good pain control. She was up in the halls ambulating without difficulty. Voiding and having bowel movements without difficulty. Labs and Pending Lab Test: Microbiology 07/09/22 Urine Culture - Final, Complete See Comments Home Meds Active Hydrocodone-Acetamin 5-325 mg (Hydrocodone/Acetaminophen) 5 Mg-325 Mg Tablet 1 Ea PO Q4H PRN MDD 6 5 Days Assessment/Pt Instructions Follow-up in 1 week for incision check at the office. No baths-showers only. No sexual activity for 6 weeks. Discharge Instructions Discharge Diet: No Restrictions Activity as Tolerated: Yes Discharge Physical Examination General Appearance: Alert, Oriented X3 HEENT: Atraumatic, EOMI Respiratory: Clear to Auscultation Cardiovascular: Regular Rate, Normal S1, Normal S2 Abdominal: Soft, Other (Incision C/D/I, FF at umbilicus) Extremities: No Tenderness/Swelling Skin: No Rashes Neuro: Cranial Nerves 3-12 NL Psych/Mental Status: Mental Status NL Allergies: Coded Allergies: diphenhydramine (Verified Allergy, Severe, Anaphylaxis, 07/09/22) Discharge Summary Date of Admission Jul 09, 2022 at 18:37 Date of Discharge Discharge Date: Jul 12, 2022 Discharge Diagnosis S/P primary , acute blood loss anemia (1) 40 weeks gestation of Status: Resolved (2) Acute blood loss anemia Status: Acute MICKY CAMACHO DO Jul 12, 2022 14:17
[2022-07-12 15:15] VITALS: BP 117/75
== END 2022-07-12 15:30 | disposition home or self-care (01) | DRG 787 ==
LOC: LDRP 18:37
PROVIDERS: ADMIT Family Medicine; ATTEND Obstetrics & Gynecology
PROC: 10D00Z1 Extraction of Products of Conception, Low, Open Approach (ICD-10-PCS; principal; 2022-07-10 21:37)
DX: O48.0 Post-term pregnancy (principal); D62 Acute posthemorrhagic anemia; Z3A.40 40 weeks gestation of pregnancy; Z37.0 Single live birth; O99.344 Other mental disorders complicating childbirth; F41.9 Anxiety disorder, unspecified; F32.A Depression, unspecified; O90.81 Anemia of the puerperium; O62.0 Primary inadequate contractions
CPT/HCPCS: 36415; 81000; 85025; 86780; 86850; 86900; 86901; 87088; 94664